=== PATIENT | female | born 1980 | race Caucasian/White ===

== ENCOUNTER 2024-04-16 13:26 | Emergency (ER) | payer OTHER ==
[~2024-04-16] VITALS: Ht 160 cm; Wt 90.9 kg
[2024-04-16 13:37] VITALS: TEMP 97.7
[2024-04-16] MEDS ORDERED: NS 1,000 ML IV ONE (15:30)
[2024-04-16 15:56] LABS: BASO # 0.1 K/mm3 (0.0-0.2); BASO % 0.4 % (0.0-2.0); EOS # 0.6 K/mm3 (0.0-0.7); EOS % 4.6 % (0.0-4.0); GRAN # 8.1 K/mm3 (1.4-6.5); GRAN % 68.2 % (42.2-75.2); HEMATOCRIT 41.8 % (37.0-47.0); HEMOGLOBIN 13.8 g/dl (12.5-16.0); LYMPH # 2.3 K/mm3 (1.2-3.4); LYMPH % 19.6 % (20.0-51.0); MEAN CELL VOLUME 90 fl (80.0-100.0); MEAN CORPUSCULAR HEMOGLOBIN 30 pg (27-31); MEAN CORPUSCULAR HGB CONC 33 g/dl (33.0-37.0); MEAN PLATELET VOLUME 10.5 fl (7.4-10.4); MONO # 0.8 K/mm3 (0.1-0.6); MONO % 6.9 % (1.7-9.3); PLATELET COUNT 426 K/mm3 (130-400); RED BLOOD COUNT 4.65 M/mm3 (4.10-5.30); REDCELL DISTRIBUTION WIDTH-CV 14.1 % (11.5-14.5)
[2024-04-16 16:05] LABS: ERYTHROCYTE SEDIMENTATION RATE 47 mm/hr (0-20)
[2024-04-16 16:32] LABS: ALBUMIN 3.7 g/dL (3.5-5.0); BILIRUBIN,TOTAL 0.3 mg/dL (0.2-1.2); C-REACTIVE PROTEIN 5.59 mg/dL (0.00-0.50); CALCIUM 9.5 mg/dL (8.4-10.2); CREATININE, serum 0.77 mg/dL (0.57-1.11); POTASSIUM 3.6 mEq/L (3.5-4.5); TOTAL PROTEIN 7.5 g/dl (6.2-8.1)
[2024-04-16] MEDS ORDERED: cefTRIAXone 1 G in Water For Injection,Sterile 10 ML IV ONE (16:45)
[2024-04-16] MEDS ORDERED: Sulfamethoxazole/Trimethoprim 800-160 MG TAB PO ONE (16:45)
[2024-04-16] MEDS ORDERED: SEPTRA DS 8001 TAB PO (16:57)
[2024-04-16] MEDS ORDERED: oxyCODONE/Acetaminophen 10-325 MG TAB PO ONE (17:00)
[2024-04-16 17:55] VITALS: BP 119/79; PULSE 73
== END 2024-04-16 17:55 | disposition home or self-care (01) ==
LOC: COL.ER 13:26
PROVIDERS: Emergency Medicine
DX: L03.116 Cellulitis of left lower limb (principal)
CPT/HCPCS: J0696; J7030

== ENCOUNTER 2024-04-21 14:31 | Inpatient (IN) | payer OTHER ==
[~2024-04-21] VITALS: Ht 160 cm; Wt 93.0 kg
[~2024-04-21 14:31] MED LIST: SEPTRA DS 8001 TAB PO
[2024-04-21 16:34] LABS: BASO # 0.1 K/mm3 (0.0-0.2); BASO % 0.5 % (0.0-2.0); EOS # 0.3 K/mm3 (0.0-0.7); EOS % 2.1 % (0.0-4.0); GRAN # 9.1 K/mm3 (1.4-6.5); GRAN % 76.9 % (42.2-75.2); HEMATOCRIT 43.6 % (37.0-47.0); HEMOGLOBIN 14.7 g/dl (12.5-16.0); LYMPH # 1.6 K/mm3 (1.2-3.4); LYMPH % 13.7 % (20.0-51.0); MEAN CELL VOLUME 89 fl (80.0-100.0); MEAN CORPUSCULAR HEMOGLOBIN 30 pg (27-31); MEAN CORPUSCULAR HGB CONC 34 g/dl (33.0-37.0); MEAN PLATELET VOLUME 10.4 fl (7.4-10.4); MONO # 0.8 K/mm3 (0.1-0.6); MONO % 6.4 % (1.7-9.3); PLATELET COUNT 450 K/mm3 (130-400); REDCELL DISTRIBUTION WIDTH-CV 13.9 % (11.5-14.5)
[2024-04-21 16:54] LABS: ALBUMIN 3.8 g/dL (3.5-5.0); BILIRUBIN,TOTAL 0.3 mg/dL (0.2-1.2); C-REACTIVE PROTEIN 1.78 mg/dL (0.00-0.50); CALCIUM 9.9 mg/dL (8.4-10.2); CREATININE, serum 0.85 mg/dL (0.57-1.11); TOTAL PROTEIN 7.8 g/dl (6.2-8.1)
[2024-04-21] MEDS ORDERED: HYDROmorphone 0.5 MG/0.5 ML SYRINGE IV ONE (17:00)
[2024-04-21] MEDS ORDERED: oxyCODONE 5 MG TAB PO PRN (17:30)
[2024-04-21] MEDS ORDERED: Ondansetron 4 MG/2 ML VIAL IV PRN (17:30)
[2024-04-21] MEDS ORDERED: Acetaminophen 500 MG TAB PO PRN (17:30)
[2024-04-21] MEDS ORDERED: Morphine 4 MG/ML VIAL IV PRN (17:30)
[2024-04-21] MEDS ORDERED: CIPRO 500MG TA500 MG PO (17:35)
[2024-04-21] MEDS ORDERED: ATARAX 25MG25 MG/TAB PO (17:36)
[2024-04-21] MEDS ORDERED: TRICOR145 MG PO (17:37)
[2024-04-21] MEDS ORDERED: CYMBALTA 60MG60 MG PO (17:38)
[2024-04-21] MEDS ORDERED: LOPRESSOR HCT 21 TA1 PO (17:38)
[2024-04-21] MEDS ORDERED: PRINZIDE 12.5 M1 TAB PO (17:39)
[2024-04-21] MEDS ORDERED: DESYREL 100MG100 MG PO (17:39)
[2024-04-21] MEDS ORDERED: CEPHALEXIN500 M1 PO (17:40)
[2024-04-21] MEDS ORDERED: PERCOCET 325 MG1 TA2 PO (17:41)
[2024-04-21 17:45] LABS: URINE APPEARANCE CLEAR (CLEAR/HAZY); URINE BLOOD NEGATIVE (NEGATIVE); URINE COLOR YELLOW (YELLOW); URINE GLUCOSE NEGATIVE (NEGATIVE); URINE KETONE NEGATIVE (NEGATIVE); URINE NITRATE NEGATIVE (NEGATIVE); URINE PROTEIN(semi-quant) NEGATIVE (NEGATIVE)
[2024-04-21 17:56] LABS: COLLECTION METHOD CLEAN CATCH
[2024-04-21] MEDS ORDERED: Nicotine 21 MG DAILY PATCH TD SCH (18:26)
[2024-04-21 18:28] VITALS: BP 121/78; PULSE 76; TEMP 98.3
--- NOTE | 2024-04-21 18:29 | NUR ---
Patient arrived to the medical unit, room 315. Alert and oriented x 4. VSS. States pain is 6/10, dilauded was provided in the ED. Getting Vancomycin per orders. Left foot cellulitis. Dorsal site wound healing and closed with no drainage. 4cm x 1.5 cm wound.
[2024-04-21] MEDS ORDERED: hydrOXYzine HCl 25 MG TAB PO PRN (18:30)
[2024-04-21 18:35] VITALS: BP_SYST 121
--- NOTE | 2024-04-21 18:44 | NUR ---
Patient resting in bed, continue getting vancomycin. Report will be given to night RN. Assessment intake completed.
[2024-04-21] MEDS ORDERED: LOPRESSOR 550 MG/TAB PO (20:06)
[2024-04-21 20:20] VITALS: BP 162/70; PULSE 79; TEMP 98.4
[2024-04-21 20:30] VITALS: BP_SYST 96
--- NOTE | 2024-04-21 20:30 | NUR ---
Initial shift assessment done- states having pain 6/10 to left foot, foot red/edema/black scab/wound to top of foot, redness outlined earlier /no increase. Leg elevated SCD to right leg- refusing on left leg,, will give oxycodone as ordered for pain.
[2024-04-21] MEDS ORDERED: DULoxetine 60 MG CAP PO SCH (21:42)
[2024-04-21] MEDS ORDERED: traZODone 100 MG TAB PO SCH (21:43)
[2024-04-21] MEDS ORDERED: Fenofibrate 54 MG TABLET PO SCH (21:43)
[2024-04-21] MEDS ORDERED: Metoprolol Tartrate 50 MG TAB PO SCH (21:45)
--- NOTE | 2024-04-21 21:45 | NUR ---
Pt states oxycodone did not relieve the pain in left foot--will give Morphine IV at this time for pain 03/08 left foot, foot elevated on 2 pillows.
[2024-04-22] VITALS (11 sets, daily range): BP systolic 94–112; BP diastolic 56–75; PULSE 62–80; TEMP 97.6–98.1
[2024-04-22] MEDS ORDERED: 1/2 NS 1,000 ML IV SCH
[2024-04-22] MEDS ORDERED: Vancomycin 1.25 GM,Special Dose/Pharmacy Prepared 1.25 GM in NS 250 ML IV SCH (06:00)
--- NOTE | 2024-04-22 06:15 | NUR ---
Resting quietly at this time, VSS, IV fluids infusing 1/2NS at 75cc/hr- L/foot remains the same/red/edema, up on 2 pillows- getting IV antibiotics as ordered.
--- NOTE | 2024-04-22 07:45 | NUR ---
PATIENT RESTING IN BED. AWAKE, ALERT, AND ORIENTED. PATIENT COMPLAINING OF 7/10 PAIN IN THE LEFT FOOT. LEFT FOOT IS EDEMATOUS, CLEAN, DRY, AND INTACT. ESCHAR NOTED TO ANTERIOR PART OF THE FOOT. THIS RN ADMINISTERED MORPHINE PER MAR. PATIENT DENIES FURTHER NEEDS OR CONCERNS AT THIS TIME. WILL MONITOR FOR CHANGES
[2024-04-22] MEDS ORDERED: Fenofibrate (Tricor) 145 MG **** subs to Fenofibrate (Lofibra) 162 MG PO SCH (09:00)
--- NOTE | 2024-04-22 10:29 | NUR ---
livestock farmworker met with patient and her friend whom was at bedside to discuss discharge planning. Patient reports to live in [place]. Patient's first point of contact is Alirio (life partner) P# [phone] and her second point of contact is Stacy P# [phone]. PCP is Dr. Rooney, Pharmacy is [facility]. No issues affording medications. INsurance is [employer] and [employer]. No DPOA-HC and not interested in completing one at this time, patient's next of kin would be her mother, Stacy. No DME, Patient is independent with ADLS and takes care of 24 horses at home. Patient has a form of transportation to get to and from appointments. Patient would like to return home at time of discharge. Discharge plan: Home
[2024-04-22] MEDS ORDERED: ZYRTEC-D 5 MG-11 TER PO (10:52)
[2024-04-22] MEDS ORDERED: Gadoterate 20 ML VIAL IV ONE (11:39)
--- NOTE | 2024-04-22 12:16 | NUR ---
PATIENT BACK FROM MRI AT APPROX 1205. PATIENT IS ALERT AND ORIENTED. PATIENT STATES PAIN IS GETTING WORSE AFTER PT, TAKING HER CAM BOOT ON/OFF, AND THE MRI. THIS RN ADMINISTERED PAIN MEDICATION PER SEP. WILL MONITOR
--- NOTE | 2024-04-22 12:58 | NUR ---
THIS RN WENT TO REASSESS PATIENT. PATIENT SITTING UP IN CHAIR. APPPEARS LESS ANXIOUS AND MORE COMFORTABLE. PATIENT STATES HER PAIN IS DOWN TO A 3/10 NOW AND IS A LOT BETTER.
[2024-04-23 00:24] VITALS: BP 97/57; PULSE 60; TEMP 97.6
[2024-04-23 00:26] VITALS: BP_SYST 97
--- NOTE | 2024-04-23 01:09 | NUR ---
patient lying in bed, alert and oriented x4. denies chest pain and shortness of breath. reports pain 8/10 in left foot, roxicodone given, upon reassessment pain rated 6/10, per pt request morphine given, pt resting with eyes closed at this time. left foot wound with eschar, no drainage noted, surrounding site redness, open to air, cam boot, CDI. IV in LAC is patent, site is CDI with mild intermittent discomfort, 1/2 NS running at 75 ml/HR. pt ambulating with steady gait and walker/cam boot. fall precautions in place, call light within reach. pt has no further needs. questions or concerns at this time.
[2024-04-23 03:19] VITALS: BP 94/60; PULSE 65; TEMP 97.7
[2024-04-23 03:20] VITALS: BP_SYST 94
[2024-04-23 06:46] LABS: BASO # 0.1 K/mm3 (0.0-0.2); BASO % 0.6 % (0.0-2.0); EOS # 0.4 K/mm3 (0.0-0.7); EOS % 4.4 % (0.0-4.0); GRAN # 5.3 K/mm3 (1.4-6.5); GRAN % 62.7 % (42.2-75.2); HEMATOCRIT 37.7 % (37.0-47.0); LYMPH % 24.1 % (20.0-51.0); MEAN CELL VOLUME 90 fl (80.0-100.0); MEAN CORPUSCULAR HEMOGLOBIN 29 pg (27-31); MEAN CORPUSCULAR HGB CONC 33 g/dl (33.0-37.0); MEAN PLATELET VOLUME 10.3 fl (7.4-10.4); MONO # 0.7 K/mm3 (0.1-0.6); MONO % 7.8 % (1.7-9.3); PLATELET COUNT 383 K/mm3 (130-400); RED BLOOD COUNT 4.19 M/mm3 (4.10-5.30)
[2024-04-23 06:49] LABS: HEMOGLOBIN 12.3 g/dl (12.5-16.0)
[2024-04-23 06:59] LABS: CALCIUM 8.9 mg/dL (8.4-10.2); CREATININE, serum 0.81 mg/dL (0.57-1.11); POTASSIUM 4.1 mEq/L (3.5-4.5)
[2024-04-23 07:12] VITALS: BP 131/65; PULSE 65; TEMP 97.7
--- NOTE | 2024-04-23 08:00 | NUR ---
Patient resting in bed, alert and oriented x 4, VSS. States her left foot is improving, and would like to go home soon. Assessment completed, meds given. No further needs at this time. Call light within reach.
[2024-04-23 09:00] VITALS: BP_SYST 131
[2024-04-23] MEDS ORDERED: metroNIDAZOLE 250 MG TAB PO SCH (10:00)
[2024-04-23] MEDS ORDERED: FLAGYL500 MG PO (10:01)
[2024-04-23] MEDS ORDERED: ZYVOX 600MG600 MG PO (10:02)
[2024-04-23] MEDS ORDERED: ASPIRIN 81M81 MG/TA2 PO (10:03)
--- NOTE | 2024-04-23 10:08 | NUR ---
family support worker was informed pt will discharge. She does not need OP PT and will utilzie the cam boot and follow up with her PCP. No needs. Discharge Plan: home
--- NOTE | 2024-04-23 12:12 | NUR ---
Patient was provided with discharge information, all questions answered. IV access was discontinued.
[2024-04-23] MEDS ORDERED: Linezolid 600 MG TAB PO SCH (21:00)
== END 2024-04-23 12:14 | disposition home or self-care (01) | DRG 605 ==
LOC: COL.ER 14:31 → MEDICAL 17:06
PROVIDERS: Nurse Practitioner; Physician Assistant; ADMIT Internal Medicine
DX: S90.32XA Contusion of left foot, initial encounter (principal); L03.116 Cellulitis of left lower limb; I10 Essential (primary) hypertension; M06.9 Rheumatoid arthritis, unspecified; G62.9 Polyneuropathy, unspecified; S97.82XA Crushing injury of left foot, initial encounter; F17.210 Nicotine dependence, cigarettes, uncomplicated; Z90.710 Acquired absence of both cervix and uterus; W55.12XA Struck by horse, initial encounter; Y93.89 Activity, other specified; Y92.89 Other specified places as the place of occurrence of the external cause; Z90.89 Acquired absence of other organs; Z88.8 Allergy status to other drugs, medicaments and biological substances; Z88.6 Allergy status to analgesic agent; Z88.1 Allergy status to other antibiotic agents; Z91.041 Radiographic dye allergy status; Z79.899 Other long term (current) drug therapy; Z79.2 Long term (current) use of antibiotics
CPT/HCPCS: A9575; J1170; J2270; J2543; J3370; J7050; L4386